=== PATIENT | male | born 1980 | race Caucasian/White ===

== ENCOUNTER 2017-12-08 08:35 | Outpatient (CLI) | payer BC ==
--- NOTE | 2017-12-08 10:42 | CT ---
CT OF THE ABDOMEN AND PELVIS WITH IV CONTRAST: INDICATION: Left lower quadrant abdominal pain with nausea and constipation. COMPARISON: None. FINDINGS: The lung alcazar are clear. No focal hepatic lesion is demonstrated. The pancreas, adrenal glands, and spleen appear within norm al limits. No focal renal lesion is evident. No free fluid or enlarged lymph nodes are evident. There is a mild amount of retained stool within the colon. There is a normal appendix in the right l ower quadrant of the abdomen. No enlarged lymph nodes are present. The bladder, rectum, and perirec iesha soft tissues are unremarkable. There is mild scattered degenerative and osteoarthritic change. There is some slight nodularity with in the subcutaneous tissues in the right gluteal region that may reflect the prior injection site. IMPRESSION: 1. A mild amount of retained stool within the colon. 2. Slight nodularity within the subcutaneous tissues overlying the right gluteal region that may ref lect the sequelae of prior injection. Recommend correlation. POS: [facility]IN
== END 2017-12-08 08:36 | disposition home or self-care (01) ==
LOC: SCSCT 08:35
PROVIDERS: ATTEND Internal Medicine Gastroenterology
DX: R10.32 Left lower quadrant pain (principal); R11.2 Nausea with vomiting, unspecified; K59.00 Constipation, unspecified
CPT/HCPCS: 74177